=== PATIENT | male | born 1940 | race Caucasian/White ===

== ENCOUNTER 2017-01-27 10:27 | Emergency (ER) | payer MEDICARE ==
[~2017-01-27] VITALS: Ht 172.7 cm; Wt 113.6 kg
[~2017-01-27 10:27] MED LIST: AMOX500T PO; FLON0.053; LISI-587 PO; MULT1TAB PO; OMEP20TA39 PO; SYMB80AE INH; TAMS0.4C67 PO
[2017-01-27 10:45] VITALS: BP 138/83; PULSE 83; RESP 16; TEMP 97.9; O2SAT 95
[2017-01-27] MEDS ORDERED: FLUT50SP EACH NARE (11:04)
[2017-01-27] MEDS ORDERED: LISI20TA3 PO (11:04)
[2017-01-27] MEDS ORDERED: OMEP40CA2 PO (11:04)
[2017-01-27] MEDS ORDERED: SYMB80AE INH (11:04)
[2017-01-27] MEDS ORDERED: TAMS0.4C4 PO (11:04)
--- NOTE | 2017-01-27 11:06 | PD ---
HPI Chief Complaint: Respiratory Symptoms Time Seen by Provider: 10:58 Travel History International Travel<30 days: No Contact w/Intl Traveler<30days: No Traveled to known affect area: No History of Present Illness HPI This is a 76-year-old male who presents to the emergency department with 2 days of increasing shortness of breath, tightness when he breathes, constant, moderate severity, worse with walking associated with rhinorrhea. His was sick with a cold that started 5 days ago and he thinks he caught it. He denies any fevers or chills. He does have a history of asthma and he takes Flonase, Symbicort and uses an albuterol inhaler. He has a 15 pack year smoking history. PFSH Past Medical History Asthma: Yes Cancer: Yes (PROSTATE) Cardiovascular Problems: No COPD: Yes Diabetes: No Endocrine: No Gastrointestinal Disorders: Yes (GERD) GERD: Yes Genitourinary: Yes (PROSTATE CA) Hepatitis: No Hiatal Hernia: No Hypertension: Yes Immune Disorder: No Musculoskeletal: Yes (ARTHRITIS) Neurologic: No Psychiatric: No Respiratory: Yes (ASTHMA) Thyroid Disease: No Past Surgical History AICD: No Genitourinary Surgery: Yes (PROSTATE BX, VASECTOMY) Joint Replacement: No Pacemaker: No Other Surgery: Yes Social History Alcohol Use: Yes (occ) Tobacco Use: No Substance Use: No Allergies-Medications (Allergen,Severity, Reaction): Coded Allergies: Oxycontin (Verified Allergy, Unknown, Hives, 01/27/17) Reported Meds & Prescriptions Reported Meds & Active Scripts Active Reported Tamsulosin (Tamsulosin HCl) 0.4 Mg Cap 0.4 Mg PO HS Symbicort Inh (Budesonide/Formoterol Fumarate) 80-4.5 Mcg/Act Aero 2 Puff INH HS Fluticasone Nasal [place] 50 Mcg/Act Naspr 50 Mcg EACH NARE DAILY 50 mcg/spray Omeprazole 40 Mg Cap 40 Mg PO DAILY Lisinopril-Hctz 20-25 Mg Tab 1 Tab PO DAILY Review of Systems Except as stated in HPI: all other systems reviewed are Neg Physical Exam Narrative GENERAL:Well appearing, no acute distress SKIN: Focused skin assessment warm and dry. HEAD: Atraumatic. Normocephalic. EYES: Pupils equal and round. No injection or drainage. ENT: Moist mucous membranes NECK: Trachea midline. CARDIOVASCULAR: Regular rate and rhythm. No murmur appreciated. RESPIRATORY: Focal area of wheezing in the right lower lobe with no increased work of breathing or accessory muscle use. GASTROINTESTINAL: Abdomen soft, non-tender, nondistended. MUSCULOSKELETAL: No obvious deformities. NEUROLOGICAL: Awake and alert. No obvious cranial nerve deficits. Moving all extremities. PSYCHIATRIC: Appropriate mood and affect; insight and judgment normal. Data Data Last Documented VS Vital Signs Date Time Temp Pulse Resp B/P Pulse Ox O2 Delivery O2 Flow Rate FiO2 01/27/17 10:45 97.9 83 16 138/83 95 Orders Chest, Pa & Lat (01/27/17 ) [facility] Medical Decision Making Medical Screen Exam Complete: Yes Emergency Medical Condition: Yes Interpretation(s) Afebrile, no tachycardia Chest x-ray: No acute process Differential Diagnosis Pneumonia, bronchitis, pulmonary embolism, pneumothorax Narrative Course This is a 76-year-old male who presents to the emergency department with increasing shortness of breath in the setting of some upper respiratory symptoms. I suspect he has a viral syndrome that has exacerbated his asthma. Chest x-ray was reassuring. Patient will be discharged on prednisone. Diagnosis Primary Impression: Asthma Qualified Code: J45.21 - Mild intermittent asthma with acute exacerbation Patient Instructions: General Instructions Additional Instructions: If you develop severe shortness of breath, chest pain, or difficulty breathing return to the emergency department. Use albuterol every 4 hours for the next 2 days. Then use as needed for wheezing. Complete your course of steroids. Follow up with your primary care physician in 2-3 days if your symptoms have not improved. Med/Other Pt SpecificInfo: Prescription(s) given Scripts Prednisone 20 Mg Tab40 Mg PO DAILY 5 Days Prov:Sheryl Daugherty MD 01/27/17 Disposition: 01 DISCHARGE HOME Condition: Stable Sheryl Daugherty MD January 27, 2017 11:06
--- NOTE | 2017-01-27 11:52 | RADHPO ---
EXAM DATE/TIME: 01/27/2017 11:22 [place] COMPARISON: No previous studies available for comparison. INDICATIONS : Short of breath MEDICAL HISTORY : Asthma SURGICAL HISTORY : None. ENCOUNTER: Initial ACUITY: 2 days PAIN SCORE: 0/10 LOCATION: Bilateral chest FINDINGS: There is elevation of the right hemidiaphragm. The pulmonary vascular pattern is normal. The heart is normal. The lungs are clear. CONCLUSION: 1. Elevation of the right hemidiaphragm. 2. No acute focal pulmonary infiltrate or pulmonary vascular congestion. Cb Shearer MD on January 27, 2017 at 11:46 Board Certified Radiologist. This report was verified electronically.
[2017-01-27] MEDS ORDERED: PRED20 PO (11:57)
[2017-01-27 12:06] VITALS: BP 149/76
== END 2017-01-27 12:07 | disposition home or self-care (01) ==
LOC: PHED 10:27
DX: J45.909 Unspecified asthma, uncomplicated (principal); J44.9 Chronic obstructive pulmonary disease, unspecified; I10 Essential (primary) hypertension; K21.9 Gastro-esophageal reflux disease without esophagitis; Z85.46 Personal history of malignant neoplasm of prostate; Z87.891 Personal history of nicotine dependence
CPT/HCPCS: 71020; 99283